=== PATIENT | female | born 1980 | race Caucasian/White ===

== ENCOUNTER 2016-12-04 02:07 | Emergency (ER) | payer SELFPAY ==
[2016-12-04 02:31] VITALS: O2SAT 100
[2016-12-04] MEDS ORDERED: Sodium Chloride 0.9% 1,000 ML IV ONE (03:29)
[2016-12-04] MEDS ORDERED: Sodium Chloride 0.9% 1,000 ML ONE (03:40)
[2016-12-04 03:49] LABS: RBC URINE 1 /hpf (0-3); URINE BILIRUBIN NEGATIVE (NEGATIVE); URINE BLOOD NEGATIVE (NEGATIVE); URINE COLOR Yellow (YELLOW); URINE GLUCOSE (UA) NORMAL (Normal); URINE KETONE TRACE mg/dL (NEGATIVE); URINE LEUKOCYTE ESTERASE NEG Leu/uL (Negative); URINE PROTEIN NEGATIVE (NEGATIVE); URINE UROBILINOGEN NORMAL mg/dL (0.2-1.0); WBC URINE 1 /hpf (0-5)
[2016-12-04 03:51] LABS: BASO % 0.5 % (0.0-2.0); EOS % 0.7 % (0.0-4.0); HEMATOCRIT 38.8 % (34.0-47.0); MEAN CELL VOLUME 94.8 fL (81.0-99.0); MEAN CORPUSCULAR HEMOGLOBIN 32.4 pg (27.0-31.0); MEAN CORPUSCULAR HGB CONC 34.2 g/dL (33.0-37.0); MEAN PLATELET VOLUME 9.2 fL (7.2-11.7); MONO # 0.7 K/uL (0.0-0.8); MONO % 9.7 % (0.0-10.0); RED CELL DISTRIBUTION WIDTH 12.7 % (11.5-14.5); WHITE BLOOD COUNT 7.5 K/uL (4.8-10.8)
[2016-12-04 04:07] LABS: ALB/GLOB RATIO 1.4 (1.0-2.1); ALKALINE PHOSPHATASE 48 U/L (38-126); ALT/SGPT 20 U/L (9-52); AST/SGOT 20 U/L (14-36); BILIRUBIN,TOTAL 0.7 mg/dL (0.2-1.3); BLOOD UREA NITROGEN 11 mg/dL (7-17); CARBON DIOXIDE 25 mmol/L (22-30); CHLORIDE 102 mmol/L (98-107); GFR AFRICAN-AMERICAN > 60; GLUCOSE,RANDOM 102 mg/dL (65-105); SODIUM 138 mmol/L (132-148)
[2016-12-04 04:08] LABS: CALCIUM 8.4 mg/dl (8.6-10.4)
[2016-12-04 04:15] LABS: POTASSIUM 3.3 mmol/L (3.6-5.2)
[2016-12-04 04:35] VITALS: BP 108/76; PULSE 78; RESP 16; TEMP 98.1
--- NOTE | 2016-12-04 04:52 | C.PDOC ---
History Of Present Illness Patient is a 36 year old female who presents to the ER with a complaint of an abdominal cramping pain with vomiting and diarrhea. Patient states having children at home with similar symptoms. Patient reports vomiting has resolved; however, diarrhea continues. Denies fever, recent antibiotic use, recent travel , GI bleed or rash. Time Seen by Provider: 12/04/16 03:08 Chief Complaint (Nursing): Abdominal Pain History Per: Patient History/Exam Limitations: no limitations Onset/Duration Of Symptoms: Days (3) Current Symptoms Are (Timing): Still Present Location Of Pain/Discomfort: Diffuse Radiation Of Pain To:: None Quality Of Discomfort: Cramping Associated Symptoms: Vomiting, Diarrhea. denies: Fever, Other (GI bleed, Rash) Exacerbating Factors: None Alleviating Factors: None Recent travel outside of the [place]: No Abnormal Vaginal Bleeding: No Past Medical History Reviewed: Historical Data, Nursing Documentation, Vital Signs Vital Signs: Last Vital Signs Temp 98.1 F 12/04/16 04:34 Pulse 78 12/04/16 04:34 Resp 16 12/04/16 04:34 BP 108/76 12/04/16 04:34 Pulse Ox 100 12/04/16 06:32 - Medical History PMH: No Chronic Diseases Surgical History: Tonsillectomy Family History: States: Unknown Family Hx - Social History Hx Tobacco Use: No Hx Alcohol Use: No Hx Substance Use: Yes - Immunization History Hx Tetanus Toxoid Vaccination: Yes Hx Influenza Vaccination: No Hx Pneumococcal Vaccination: No Review Of Systems Constitutional: Negative for: Fever Gastrointestinal: Positive for: Vomiting, Abdominal Pain (Cramping), Diarrhea. Negative for: Melena, Hematochezia, Hematemesis Skin: Negative for: Rash Physical Exam - Physical Exam Appears: Non-toxic, No Acute Distress Skin: Normal Color, Warm, Dry, No Rash Head: Atraumatic, Normacephalic Eye(s): bilateral: Normal Inspection Oral Mucosa: Moist Throat: No Erythema, No Exudate Neck: Normal ROM, Supple Chest: Symmetrical, No Tenderness Cardiovascular: Rhythm Regular, No Friction Rub, No Murmur Respiratory: Normal Breath Sounds, No Rales, No Rhonchi, No Wheezing Gastrointestinal/Abdominal: Soft, No Tenderness Back: Normal Inspection, No CVA Tenderness Extremity: Normal ROM, No Tenderness, No Swelling Neurological/Psych: Oriented x3, Normal Speech, Normal Cognition, Normal Motor Gait: Steady ED Course And Treatment - Laboratory Results Result Diagrams: 12/04/16 03:46 12/04/16 03:46 O2 Sat by Pulse Oximetry: 100 (Room air) Pulse Ox Interpretation: Normal Progress Note: Toradol, zofran and IV fluids administered. Medical Decision Making Medical Decision Making: On re-exam, the patient reports improvement of symptoms. Lungs are CTA, heart is RRR, abdomen is soft, non-tender and tolerating PO well. Ambulatory in the ED with stedy gait. Follow up with the medical doctor within 1-2 days. Return if worsened. Disposition - Disposition Referrals: [facility] [Outside] Disposition: HOME/ ROUTINE Disposition Time: 04:50 Condition: GOOD Additional Instructions: Follow up with the medical doctor within 1-2 days. Return if worsened. Prescriptions: Dicyclomine [Bentyl] 20 mg PO TID PRN #15 tab PRN Reason: abdominal cramping Ibuprofen [Motrin] 1 tab PO TID PRN #30 tab PRN Reason: Pain Ondansetron ODT [Zofran ODT] 1 odt PO BID PRN #10 odt PRN Reason: Nausea/Vomiting Instructions: Gastroenteritis (DC) - Clinical Impression Clinical Impression: Vomiting, Diarrhea, Viral syndrome - Scribe Statement The provider has reviewed the documentation as recorded by the Scribamina Mena All medical record entries made by the Florenciaibamina were at my direction and personally dictated by me. I have reviewed the chart and agree that the record accurately reflects my personal performance of the history, physical exam, medical decision making, and the department course for this patient. I have also personally directed, reviewed, and agree with the discharge instructions and disposition.
== END 2016-12-04 05:07 | disposition home or self-care (01) ==
LOC: C.ER 02:07
DX: R19.7 Diarrhea, unspecified (principal); R11.10 Vomiting, unspecified; B34.9 Viral infection, unspecified
CPT/HCPCS: 80053; 81001; 83690; 84703; 85025; 96374; 96375; 99284; J1885; J2405; J7040

== ENCOUNTER 2018-11-05 11:46 | Emergency (ER) | payer MEDICAID, OTHER ==
[2018-11-05 11:54] VITALS: BMI 17.7
[2018-11-05 11:58] VITALS: RESP 18; TEMP 98.7
--- NOTE | 2018-11-05 12:26 | C.PDOC ---
History Of Present Illness Patient is a 38 year old female who presents to the ED c/o left lower back pain that started 3 days ago. Patient states that it feels like a contraction or a muscle spasm and states that the pain is worse with movement. She reports taking Advil and Tylenol for her symptoms, but the pain is returning now that the medication is wearing off. She admits to a hx of muscle spasms as a teenager. She has no known hx of kidney stones. She denies any radiation of pain to the legs or abdomen, , nausea, vomiting, diarrhea, CP, SOB, numbness or tingling, saddle paresthesia, bladder or bowel incontinence, or urinary symptoms. LMP earlier this month. No other complaints at this time. Time Seen by Provider: 11/05/18 12:26 Chief Complaint (Nursing): Back Pain History Per: Patient History/Exam Limitations: no limitations Onset/Duration Of Symptoms: Days (3) Current Symptoms Are (Timing): Still Present Quality Of Discomfort: "Pain" Associated Symptoms: denies: Incontinence, New Weakness, New Numbness Exacerbating Factor(s): Movement Recent travel outside of the [facility]: No Additional History Per: Patient Past Medical History Reviewed: Historical Data, Nursing Documentation, Vital Signs Vital Signs: Last Vital Signs Temp 98.7 F 11/05/18 11:56 Pulse 87 11/05/18 11:56 Resp 18 11/05/18 11:56 BP 122/69 11/05/18 11:56 Pulse Ox 99 11/05/18 11:56 Primary Care Provider: Non [facility] Provider, - Medical History PMH: No Chronic Diseases Surgical History: Tonsillectomy Family History: States: Unknown Family Hx - Social History Hx Tobacco Use: No Hx Alcohol Use: No Hx Substance Use: No - Immunization History Hx Tetanus Toxoid Vaccination: Yes Hx Influenza Vaccination: No Hx Pneumococcal Vaccination: No Review Of Systems Except As Marked, All Systems Reviewed And Found Negative. Cardiovascular: Negative for: Chest Pain Respiratory: Negative for: Shortness of Breath Gastrointestinal: Negative for: Nausea, Vomiting, Diarrhea Genitourinary: Negative for: Dysuria, Incontinence, Hematuria Musculoskeletal: Positive for: Back Pain (left lower) Neurological: Negative for: Other (saddle paresthesia) Physical Exam - Physical Exam Appears: Well, Non-toxic, Other (tearful, uncomfortable, thin) Skin: Normal Color, Warm, Dry Head: Atraumatic, Normacephalic Eye(s): bilateral: Normal Inspection Oral Mucosa: Moist Neck: Normal, Normal ROM, No Decreased ROM, No Midline Cervical Tenderness, No Paracervical Tenderness, Supple Chest: Symmetrical Cardiovascular: Rhythm Regular Respiratory: Normal Breath Sounds, No Rales, No Rhonchi, No Wheezing Gastrointestinal/Abdominal: Soft, No Tenderness, No Rebound Back: No Vertebral Tenderness, Decreased ROM, Other (Left lower back tenderness around left SI joint worse with flexion of the back ) Extremity: Normal ROM, No Tenderness, No Swelling Extremity: Bilateral: Atraumatic DTR: Knee (R): 2+, Knee (L): 2+ Neurological/Psych: Oriented x3, Normal Speech, Normal Cognition ED Course And Treatment O2 Sat by Pulse Oximetry: 99 (on RA) Pulse Ox Interpretation: Normal Medical Decision Making Medical Decision Making: Plan: Valium 5mg PO Toradol 30mg IM UA Urine POC neg for . 11/05/18 1331 Patient states she is feeling better. Appears improved with improved ROM of the back. UA wnl no evidence for kidney stone. 11/05/18 1405 Continues to improve. States she has pain but is better. 38yo female with reproducible back pain and pain with ROM. No neuro deficits on exam or concern for cauda equina or any intr-abdominal pathology. Will treat with NSAID, pain medication and muscle relaxant. Advised to follow-up closely with her PMD as well as an orthopedist. Disposition Counseled Patient/Family Regarding: Studies Performed, Diagnosis, Need For Followup, Rx Given - Disposition Referrals: Non [facility] Provider, [Non-Staff] - Ruperto Nicole MD [Staff Provider] - Disposition: HOME/ ROUTINE Disposition Time: 14:06 Condition: IMPROVED Additional Instructions: Alternate between cold and warm compresses. Take medications as prescribed. You can use salon pass, tiger balm or bengay as well. Return if symptoms worsen or persist. Follow-up with your PMD and an orthopedist. Prescriptions: Acetaminophen with Codeine [Tylenol with Codeine No. 3 300 mg-30 mg] 1 tab PO Q6 3 Days #12 tab Cyclobenzaprine [Cyclobenzaprine HCl] 10 mg PO Q8 PRN #12 tab PRN Reason: Muscle Spasm Ibuprofen [Motrin Tab] 800 mg PO TID #20 tab Lidocaine 5% [Lidoderm] 1 ea TD BID 3 Days #6 patch Instructions: Low Back Pain in Adults Forms: [facility] (Divehi), General Discharge Instructions Print Language: ALBANIAN - Clinical Impression Clinical Impression: Low back pain - PA / RISK MANAGEMENT DIRECTOR / Resident Statement MD/DO has reviewed & agrees with the documentation as recorded. - Scribe Statement The provider has reviewed the documentation as recorded by the Florenciaibamina Huber All medical record entries made by the Florenciaibamina were at my direction and personally dictated by me. I have reviewed the chart and agree that the record accurately reflects my personal performance of the history, physical exam, medical decision making, and the department course for this patient. I have also personally directed, reviewed, and agree with the discharge instructions and disposition.
[2018-11-05 13:10] LABS: SQUAMOUS EPITHIAL < 1 /hpf (0-5); URINE BILIRUBIN NEGATIVE (NEGATIVE); URINE BLOOD NEGATIVE (NEGATIVE); URINE CLARITY Clear (Clear); URINE COLOR Straw (YELLOW); URINE GLUCOSE (UA) NORMAL (Normal); URINE LEUKOCYTE ESTERASE NEG Leu/uL (Negative); URINE PROTEIN NEGATIVE (NEGATIVE); URINE UROBILINOGEN NORMAL mg/dL (0.2-1.0)
[2018-11-05] MEDS ORDERED: Oxycodone/Acetaminophen 5/325 mg Tab PO STA (13:32)
[2018-11-05] MEDS ORDERED: Oxycodone/Acetaminophen 5/325 mg Tab ONE (13:52)
[2018-11-05 14:27] VITALS: BP 120/75; PULSE 69
[2018-11-05 18:56] VITALS: O2SAT 99
== END 2018-11-05 14:33 | disposition home or self-care (01) ==
LOC: C.ER 11:46
DX: M54.5 Low back pain (principal)
CPT/HCPCS: 81001; 81025; 96372; 99284; J1885